=== PATIENT | male | born 1940 | race Caucasian/White ===

== ENCOUNTER 2018-02-23 00:17 | Day surgery (SDC) | payer MEDICARE, OTHER ==
[~2018-02-23 00:17] MED LIST: ASPI81CH PO; CALCAVITD PO; CIPR500 PO; DEXL60CA3 PO; DOCSEN PO; DOCU100 PO; ENOX40I SC; FERR325 PO; FISH1000 PO; HYDR1TAB94 PO; MULVITMIND PO; OXYACE5T PO; OXYC5 PO; TAMS.4ER PO; Toprol Xl50 MG PO
== END 2018-02-23 10:00 | disposition home or self-care (01) ==
LOC: ATC 00:17
DX: R33.9 Retention of urine, unspecified (principal); I10 Essential (primary) hypertension
CPT/HCPCS: 51702

== ENCOUNTER 2018-04-26 | Day surgery (SDC) | END 2018-04-26 10:43 | disposition home or self-care (01) ==

== ENCOUNTER 2018-07-30 20:17 | Emergency (ER) | payer MEDICARE, OTHER ==
[~2018-07-30] VITALS: Ht 177.8 cm; Wt 77.1 kg
[~2018-07-30 20:17] MED LIST changes: +GENTAMICIN IR
== END 2018-07-31 00:03 | disposition home or self-care (01) ==
LOC: ER 20:17
DX: Z46.6 Encounter for fitting and adjustment of urinary device (principal); R31.9 Hematuria, unspecified; Z79.899 Other long term (current) drug therapy
CPT/HCPCS: 51702

== ENCOUNTER 2018-07-31 01:56 | Emergency (ER) | payer MEDICARE, OTHER ==
[~2018-07-31] VITALS: Ht 177.8 cm; Wt 77.1 kg
== END 2018-07-31 05:39 | disposition home or self-care (01) ==
LOC: ER 01:56
DX: R31.9 Hematuria, unspecified (principal); Z79.899 Other long term (current) drug therapy
CPT/HCPCS: 51700; 99283-25

== ENCOUNTER 2018-11-15 22:38 | Emergency (ER) | payer MEDICARE, OTHER ==
[~2018-11-15] VITALS: Ht 177.8 cm; Wt 77.1 kg
[2018-11-16 05:00] LABS: Calcium, Ionized (POC) 1.04 mmol/L (1.10-1.46); Chloride (POC) 106 mmol/L (98-108); Creatinine (POC) 1.1 mg/dL (0.8-1.3); Glucose (ISTAT POC) 131 mg/dL (70-99); Hemoglobin (POC) 11.9 g/dL (13.5-17.5); Potassium (POC) 4.2 mmol/L (3.5-5.5); Sodium (POC) 137 mmol/L (135-148); Total CO2 (POC) 22 mmol/L (21-32)
== END 2018-11-16 08:05 | disposition home or self-care (01) ==
LOC: ER 22:38
PROVIDERS: Emergency Medicine
DX: N13.9 Obstructive and reflux uropathy, unspecified (principal); R31.9 Hematuria, unspecified; Z79.899 Other long term (current) drug therapy
CPT/HCPCS: 51798; 80047; 85014; 96374; 96375; 99283-25; J1170; J1885; J2060; J2270

== ENCOUNTER 2019-06-24 10:11 | Day surgery (SDC) | payer MEDICARE, OTHER ==
[2019-06-24] MEDS ORDERED: PSEU120ER PO (10:32)
[2019-06-24] MEDS ORDERED: Fish Oil Conc1000 MG PO (10:33)
--- NOTE | 2019-06-24 10:51 | NUR ---
URINE IS CLOUDY AND YELLOW POST PANCHAL CATH INSERTION.
== END 2019-06-24 10:44 | disposition home or self-care (01) ==
LOC: ATC 10:11
DX: Z46.6 Encounter for fitting and adjustment of urinary device (principal); N40.1 Benign prostatic hyperplasia with lower urinary tract symptoms; R33.8 Other retention of urine; N39.0 Urinary tract infection, site not specified; N17.9 Acute kidney failure, unspecified; M17.0 Bilateral primary osteoarthritis of knee; D64.9 Anemia, unspecified; Z79.899 Other long term (current) drug therapy; Z79.82 Long term (current) use of aspirin
CPT/HCPCS: 51702

== ENCOUNTER 2019-10-11 07:48 | Day surgery (SDC) | payer MEDICARE, OTHER ==
[~2019-10-11 07:48] MED LIST changes: +Fish Oil Conc1000 MG PO; +PSEU120ER PO
--- NOTE | 2019-10-11 09:00 | NUR ---
Called Dr. Flores's office and rec'd an order to use a uro-jet as needed for purcell insertion.
--- NOTE | 2019-10-11 09:51 | NUR ---
PT STATES IN FOR A PANCHAL CHANGE BECAUSE HE IS NOT DRAINING AND EXPERIENCING PRESSURE/DISCOMFORT IN BLADDER AREA. OLD PANCHAL REMOVED. ATTEMPTED INSERTION OF 20 FR AND 18 FR COUDE PANCHAL CATHETER, UNABLE TO GET INTO BLADDER, MINIMAL AMOUNT OF RED TINGED DRAINAGE AFTER REMOVING UNSUCCESSFUL 20 FR ATTEMPT. RN CALLED DR. MONTIEL FOR UROJET ORDER, ORDER RECEIVED. ATTEMPTED INSERTION AGAIN WITH 16 FR COUDE AND UROJET, ABLE TO GET CATHETER INTO BLADDER AND CLEAR YELLOW URINE DRAINING FROM CATHETER. PT STATES PRESSURE IS GONE AND IS FEELING MUCH BETTER. NO APPARENT DRAINING AROUND CATHETER AT THIS TIME. PT ENCOURAGED TO KEEP UPCOMING APPOINTMENT WITH [facility] THIS NEXT WEEK SO THAT THEY CAN DECIDE WHETHER TO KEEP CURRENT PANCHAL IN OR CHANGE OUT FOR BIGGER SIZE OLD CATHETER WAS A 20 FR. WILL NOTIFY [facility] OF DIFFICULTY WITH CATHETER CHANGE.
== END 2019-10-11 09:17 | disposition home or self-care (01) ==
LOC: ATC 07:48
DX: Z46.6 Encounter for fitting and adjustment of urinary device (principal); N17.9 Acute kidney failure, unspecified; N40.1 Benign prostatic hyperplasia with lower urinary tract symptoms; N13.8 Other obstructive and reflux uropathy; R33.9 Retention of urine, unspecified; H52.4 Presbyopia; D63.8 Anemia in other chronic diseases classified elsewhere; I10 Essential (primary) hypertension; Z79.82 Long term (current) use of aspirin; Z79.899 Other long term (current) drug therapy; Z96.653 Presence of artificial knee joint, bilateral
CPT/HCPCS: 51702

== ENCOUNTER 2019-11-04 11:15 | Day surgery (SDC) | payer MEDICARE, OTHER ==
--- NOTE | 2019-11-04 13:17 | NUR ---
CRYSTALS PRESENT: PT ARRIVED IN CLINIC C/O CATHETER LEAKING. REMOVED 16 FR CATHETER AND FOUND THE TIP WAS COATED WITH LIGHT ELENA CRYSTALS, THE CATHETER WAS STIFF AND FELT LIKE IT WAS FILLED WITH CRYSTALS ALSO. THE NEW CATHER WAS 20 FR AT PT REQUEST AND WAS PLACED WITHOUT DIFFICULTY USING STERILE TECHNIQUE AND UROJET. URINE WAS CLEAR YELLOW WITH A FEW TINY SPECS OF BLOOD. PT TOLERATED WELL. THE OLD CATHETER WAS PLACED IN A BIOHAZARD ZIP LOCK BAG AND GIVEN TO THE PT TO TAKE TO HIS UROLOGY APPT.
== END 2019-11-04 12:06 | disposition home or self-care (01) ==
LOC: ATC 11:15
DX: Z46.6 Encounter for fitting and adjustment of urinary device (principal); N40.1 Benign prostatic hyperplasia with lower urinary tract symptoms; N13.8 Other obstructive and reflux uropathy; R33.8 Other retention of urine; N17.9 Acute kidney failure, unspecified; N39.0 Urinary tract infection, site not specified; D63.1 Anemia in chronic kidney disease; A41.9 Sepsis, unspecified organism; R53.83 Other fatigue; M17.0 Bilateral primary osteoarthritis of knee; H25.10 Age-related nuclear cataract, unspecified eye; H52.4 Presbyopia; Z79.82 Long term (current) use of aspirin; Z98.890 Other specified postprocedural states
CPT/HCPCS: 51702

== ENCOUNTER 2020-01-29 06:56 | Day surgery (SDC) | payer MEDICARE, OTHER ==
[~2020-01-29] VITALS: Ht 177.8 cm; Wt 84.3 kg
[~2020-01-29 06:56] MED LIST changes: +Aspirin EC81 MG PO; +Caltrate-600 W1 EACH PO
--- NOTE | 2020-01-29 08:09 | NUR ---
01/29/20 0809 Rufus Carmona CALL LIGHT WITHIN REACH. FAMILY AT BEDSIDE.
== END 2020-01-29 10:52 | disposition home or self-care (01) ==
LOC: ORSCSDS 06:56
PROVIDERS: Ophthalmology
PROC: 08RK3JZ Replacement of Left Lens with Synthetic Substitute, Percutaneous Approach (ICD-10-PCS; principal; 2020-01-29 08:30)
DX: H25.12 Age-related nuclear cataract, left eye (principal); I10 Essential (primary) hypertension; G40.901 Epilepsy, unspecified, not intractable, with status epilepticus; Z79.899 Other long term (current) drug therapy
CPT/HCPCS: J2001; J2250; J3010; J3301; J7040; J7120; V2632

== ENCOUNTER 2020-04-09 10:35 | Day surgery (SDC) | payer MEDICARE, OTHER | END 2020-04-09 12:00 | disposition home or self-care (01) | LOC: ATC 10:35 | DX: N40.1 Benign prostatic hyperplasia with lower urinary tract symptoms (principal); R33.8 Other retention of urine; I10 Essential (primary) hypertension; Z79.899 Other long term (current) drug therapy | CPT/HCPCS: 51702 ==

== ENCOUNTER 2020-10-16 13:17 | Day surgery (SDC) | payer MEDICARE, OTHER ==
[~2020-10-16 13:17] MED LIST changes: +FISH OIL 1,2001 EAC1 PO
--- NOTE | 2020-10-16 17:34 | NUR ---
PT REPORTS PANCHAL STOPPED DRAINING LAST EVENING. HE IRRIGATED IT AT HOME WITHOUT SUCCESS. URINE LEAKING OUT AROUND CATHETER. PT CAME IN WITH A 20 F 5 ML BALLOON. UNABLE TO REPLACE WITH A 20 F PANCHAL DESPITE A UROJET BEING USED. LOTS OF RESISTANCE FELT AND DISCOMFORT WITH INFLATING THE BALLOON DESPITE THE CATHETER BEING IN THE URETHERA 1 INCH SHORT OF THE SALINE PORT. 20 F REMOVED. 18 F COUDE PANCHAL PLACED WITHOUT ANY RESISTANCE. BALLOON INFLATED WITH 10 ML NS. PANCHAL DRAINING LT CHARLES URINE WITH 2 SMALL CLOTS NOTED. PT WILL MONITOR URINE AND IRRIGATE THE PANCHAL AT HOME PRN.
== END 2020-10-16 17:19 | disposition home or self-care (01) ==
LOC: ATC 13:17
DX: R33.9 Retention of urine, unspecified (principal); I10 Essential (primary) hypertension; Z90.49 Acquired absence of other specified parts of digestive tract; Z96.653 Presence of artificial knee joint, bilateral; Z88.8 Allergy status to other drugs, medicaments and biological substances
CPT/HCPCS: 51702

== ENCOUNTER 2020-11-10 10:04 | Day surgery (SDC) | payer MEDICARE, OTHER ==
[2020-11-11] MEDS ORDERED: CEFP200 PO (18:34)
== END 2020-11-10 11:05 | disposition home or self-care (01) ==
LOC: ATC 10:04
DX: H01.009 Unspecified blepharitis unspecified eye, unspecified eyelid (principal); I10 Essential (primary) hypertension; Z79.899 Other long term (current) drug therapy
CPT/HCPCS: 51702

== ENCOUNTER 2020-11-11 13:28 | Emergency (ER) | payer MEDICARE, OTHER ==
[~2020-11-11] VITALS: Ht 177.8 cm; Wt 77.1 kg
[2020-11-11 13:49] LABS: BASOPHILS ABSOLUTE AUTO 0.06 K/mm3 (0.00-0.23); BASOPHILS PERCENT AUTO 1 % (0-2); EOSINOPHILS ABSOLUTE AUTO 0.04 K/mm3 (0.00-0.68); EOSINOPHILS PERCENT AUTO 0 % (0-6); Hematocrit 40.8 % (37.0-53.0); Hemoglobin 12.5 g/dL (13.5-17.5); IMMATURE GRAN ABSOLUTE AUTO 0.03 K/mm3 (0.00-0.10); IMMATURE GRAN PERCENT AUTO 0 % (0-1); LYMPHOCYTES ABSOLUTE AUTO 0.77 K/mm3 (0.84-5.20); LYMPHOCYTES PERCENT AUTO 7 % (21-46); MONOCYTES PERCENT AUTO 5 % (4-13); Mean Corpuscular HGB 25.4 pg (26.0-34.0); Mean Corpuscular HGB Conc 30.6 g/dL (31.5-36.5); Mean Corpuscular Volume 83 fL (80-100); Mean Platelet Volume 10.6 fL (9.1-12.4); NEUTROPHILS ABSOLUTE AUTO 9.64 K/mm3 (1.96-9.15); NEUTROPHILS PERCENT AUTO 87 % (41-73); Platelet Count 221 K/mm3 (150-400); RDW Standard Deviation 49.1 fL (35.1-46.3); Red Blood Cell Count 4.93 M/mm3 (4.30-5.90); White Blood Cell Count 11.04 K/mm3 (4.00-11.30)
[2020-11-11 14:19] LABS: Alanine Aminotransfer (ALT/SGP 15 U/L (12-78); Albumin, Blood 3.7 g/dL (3.4-5.0); Alk Phos 73 U/L (50-136); Anion Gap 6 mmol/L (6-16); Aspartate Aminotrans (AST/SGOT 11 U/L (12-37); Bilirubin, Total 0.5 mg/dL (0.1-1.0); Blood Urea Nitrogen 18 mg/dL (8-24); Bun/Creatinine Ratio 19.8 (12.0-20.0); CO2, Blood 28 mmol/L (21-32); Calcium, Blood 8.6 mg/dL (8.5-10.1); Chloride, Blood 106 mmol/L (98-108); Creatinine, Blood 0.91 mg/dL (0.60-1.20); Globulin, Blood 3.8 g/dL (2.2-4.0); Glomerular Filtration Rate >60 (60-); Glucose, Blood 132 mg/dL (70-99); Potassium, Blood 4.3 mmol/L (3.5-5.5); Sodium, Blood 140 mmol/L (136-145); Total Protein, Blood 7.5 g/dL (6.4-8.2)
[2020-11-11 17:28] LABS: Source, Urine Catheter
[2020-11-11 17:34] LABS: Appearance, Urine Cloudy (Clear); Bilirubin, Urine Neg (Neg); Blood, Urine 3+ (Neg); Color, Urine Yellow (P-Yellow); Glucose Qualitative, Urine Neg (Neg); Ketones, Urine Neg (Neg); Leukocyte Esterase, Urine 3+ (Neg); Nitrite, Urine Pos (Neg); Protein, Urine 2+ (Neg); Specific Gravity, Urine 1.015 (1.003-1.022); Urobilinogen, Urine NORM (Normal)
[2020-11-11 17:51] LABS: Red Blood Cells, Urine TNTC /hpf (0-2); Renal Epithelial Few /hpf (0-Rare); White Blood Cells, Urine TNTC /hpf (0-5)
[2020-11-11 17:52] LABS: Bacteria Many /hpf; Calcium Oxalate Crystals Rare /hpf; Squamous Epithelial Cells Not Seen /hpf (Few); Transitional Epithelial Cells Rare /hpf (0-Rare)
[2020-11-11] MEDS ORDERED: CEFP200 PO (18:34)
== END 2020-11-11 18:43 | disposition home or self-care (01) ==
LOC: ER 13:28
PROVIDERS: Emergency Medicine; Physician Assistant
DX: N39.0 Urinary tract infection, site not specified (principal); I10 Essential (primary) hypertension; Z79.899 Other long term (current) drug therapy
CPT/HCPCS: 70450; 71046; 80053; 81001; 84484; 85025; 87086; 93005; 93010; 96365; 99285-25; J0696

== ENCOUNTER 2021-01-07 10:36 | Day surgery (SDC) | payer MEDICARE, OTHER ==
[~2021-01-07 10:36] MED LIST changes: +CEFP200 PO
--- NOTE | 2021-01-07 11:42 | NUR ---
PT HEARTRATE RANGE FROM 38-50. DENIES ANY DIZZYNESS, OR COMPLAINTS. PT STATES THAT HE FEELS FINE. CALL PLACED TO DR. LUCIO OFFICE AND NOTIFIED OF HEART RATE. STATES HE WANTS PATIENT TO COME BY THE OFFICE TODAY AT 2:45. PATIENT AGREES TO THIS.
== END 2021-01-07 11:11 | disposition home or self-care (01) ==
LOC: ATC 10:36
DX: R33.9 Retention of urine, unspecified (principal); I10 Essential (primary) hypertension; Z79.899 Other long term (current) drug therapy
CPT/HCPCS: 51702

== ENCOUNTER 2021-01-14 14:48 | Day surgery (SDC) | payer MEDICARE, OTHER | END 2021-01-14 15:25 | disposition home or self-care (01) | LOC: ATC 14:48 | DX: R33.9 Retention of urine, unspecified (principal); I10 Essential (primary) hypertension | CPT/HCPCS: 51702 ==

== ENCOUNTER 2021-01-21 11:17 | Day surgery (SDC) | payer MEDICARE, OTHER | END 2021-01-21 11:56 | disposition home or self-care (01) | LOC: ATC 11:17 | DX: R33.9 Retention of urine, unspecified (principal) | CPT/HCPCS: 51702 ==

== ENCOUNTER 2021-01-29 11:00 | Day surgery (SDC) | payer MEDICARE, OTHER | END 2021-01-29 11:43 | disposition home or self-care (01) | LOC: ATC 11:00 | DX: R33.9 Retention of urine, unspecified (principal); I10 Essential (primary) hypertension; Z96.653 Presence of artificial knee joint, bilateral | CPT/HCPCS: 51702 ==

== ENCOUNTER 2021-02-10 11:07 | Day surgery (SDC) | payer MEDICARE, OTHER | END 2021-02-10 11:36 | disposition home or self-care (01) | LOC: ATC 11:07 | DX: R33.9 Retention of urine, unspecified (principal) | CPT/HCPCS: 51702 ==

== ENCOUNTER 2021-11-04 15:26 | Day surgery (SDC) | payer MEDICARE, OTHER ==
[2021-11-04] MEDS ORDERED: AMOX-CLAV 500-1 EAC5 PO (16:30)
== END 2021-11-04 16:08 | disposition home or self-care (01) ==
LOC: ATC 15:26
DX: L03.113 Cellulitis of right upper limb (principal)
CPT/HCPCS: 96365; J0696

== ENCOUNTER 2021-11-05 01:46 | Day surgery (SDC) | payer MEDICARE, OTHER ==
[~2021-11-05 01:46] MED LIST changes: +AMOX-CLAV 500-1 EAC5 PO
[2021-11-06] MEDS ORDERED: CEFTRIAXON1 GM/50 M1 PO (13:05)
== END 2021-11-05 15:42 | disposition home or self-care (01) ==
LOC: ATC 01:46
DX: L03.113 Cellulitis of right upper limb (principal); L03.111 Cellulitis of right axilla
CPT/HCPCS: J0696

== ENCOUNTER 2021-11-06 10:54 | Day surgery (SDC) | payer MEDICARE, OTHER ==
[2021-11-06] MEDS ORDERED: CEFTRIAXON1 GM/50 M1 PO (13:05)
--- NOTE | 2021-11-06 13:07 | NUR ---
WOUND ON R HAND VERY SWOLLEN AND OOZING SOME FLUID. SKIN AROUND OPEN AREA IS SHINNY. PT STATES THE SWELLING IS ALOT BETTER. NO FURTHER REDNESS GOING UP THE ARM.
== END 2021-11-06 11:45 | disposition home or self-care (01) ==
LOC: ATC 10:54
DX: L03.113 Cellulitis of right upper limb (principal)
CPT/HCPCS: J0696

== ENCOUNTER 2021-11-07 08:52 | Day surgery (SDC) | payer MEDICARE, OTHER ==
[~2021-11-07 08:52] MED LIST changes: +CEFTRIAXON1 GM/50 M1 PO
== END 2021-11-07 22:33 | disposition home or self-care (01) ==
LOC: ATC 08:52
DX: L03.113 Cellulitis of right upper limb (principal); W55.01XA Bitten by cat, initial encounter; I10 Essential (primary) hypertension
CPT/HCPCS: J0696

== ENCOUNTER 2021-11-08 04:40 | Day surgery (SDC) | payer MEDICARE, OTHER ==
--- NOTE | 2021-11-08 09:39 | NUR ---
IV SITE WRAPPED WITH 2X2'S,COBAN, AND NETTING FOR USE TOMORROW
== END 2021-11-08 09:39 | disposition home or self-care (01) ==
LOC: ATC 04:40
DX: L03.113 Cellulitis of right upper limb (principal); W55.01XA Bitten by cat, initial encounter
CPT/HCPCS: J0696

== ENCOUNTER 2021-11-09 00:37 | Day surgery (SDC) | payer MEDICARE, OTHER | END 2021-11-09 15:18 | disposition home or self-care (01) | LOC: ATC 00:37 | DX: L03.111 Cellulitis of right axilla (principal) | CPT/HCPCS: J0696 ==

== ENCOUNTER 2023-07-06 21:33 | Emergency (ER) | payer MEDICARE, OTHER ==
[~2023-07-06] VITALS: Ht 177.8 cm; Wt 77.1 kg
[2023-07-06 21:45] VITALS: BP 159/81
[2023-07-06] MEDS ORDERED: METO50ER PO (21:47)
[2023-07-06 22:29] LABS: BASOPHILS ABSOLUTE AUTO 0.09 K/mm3 (0.00-0.23); BASOPHILS PERCENT AUTO 1 % (0-2); EOSINOPHILS ABSOLUTE AUTO 0.32 K/mm3 (0.00-0.68); EOSINOPHILS PERCENT AUTO 4 % (0-6); Hematocrit 41.1 % (37.0-53.0); Hemoglobin 13.7 g/dL (13.5-17.5); IMMATURE GRAN ABSOLUTE AUTO 0.04 K/mm3 (0.00-0.10); IMMATURE GRAN PERCENT AUTO 1 % (0-1); LYMPHOCYTES ABSOLUTE AUTO 0.68 K/mm3 (0.84-5.20); LYMPHOCYTES PERCENT AUTO 9 % (21-46); MONOCYTES ABSOLUTE AUTO 0.63 K/mm3 (0.16-1.47); MONOCYTES PERCENT AUTO 8 % (4-13); Mean Corpuscular HGB 30.9 pg (26.0-34.0); Mean Corpuscular HGB Conc 33.3 g/dL (31.5-36.5); Mean Corpuscular Volume 93 fL (80-100); Mean Platelet Volume 10.1 fL (9.1-12.4); NEUTROPHILS ABSOLUTE AUTO 6.17 K/mm3 (1.96-9.15); NEUTROPHILS PERCENT AUTO 78 % (41-73); Platelet Count 190 K/mm3 (150-400); RDW Coefficient Variation 13.3 % (11.7-14.2); RDW Standard Deviation 45.6 fL (35.1-46.3); Red Blood Cell Count 4.43 M/mm3 (4.30-5.90); White Blood Cell Count 7.93 K/mm3 (4.00-11.30)
[2023-07-06 22:50] LABS: Albumin, Blood 3.6 g/dL (3.4-5.0); Albumin/Globulin Ratio 1.1 (0.8-1.8); Bilirubin, Total 0.2 mg/dL (0.1-1.0); Bun/Creatinine Ratio 23.6 (12.0-20.0); Calcium, Blood 8.3 mg/dL (8.5-10.1); Creatinine, Blood 1.1 mg/dL (0.60-1.20); Globulin, Blood 3.3 g/dL (2.2-4.0); Potassium, Blood 4.5 mmol/L (3.5-5.5); Total Protein, Blood 6.9 g/dL (6.4-8.2)
[2023-07-07] MEDS ORDERED: DOCU100 PO (02:07)
[2023-07-07] MEDS ORDERED: Ibuprofen600 MG PO ×2 (02:07→02:49)
[2023-07-07] MEDS ORDERED: HYDR1TAB94 PO (02:48)
== END 2023-07-07 03:13 | disposition home or self-care (01) ==
LOC: ER 21:33
PROVIDERS: Emergency Medicine
DX: S22.079A Unspecified fracture of T9-T10 vertebra, initial encounter for closed fracture (principal); W10.8XXA Fall (on) (from) other stairs and steps, initial encounter; Z79.899 Other long term (current) drug therapy; I10 Essential (primary) hypertension
CPT/HCPCS: 72070; 72128; 80053; 85025; 96374; 96375; 99284-25; A9270; J1885; J2270; J2405